=== PATIENT | male | born 1995 | race African-American/Black ===

== ENCOUNTER 2018-05-01 01:34 | Emergency (ER) | payer SELFPAY ==
[~2018-05-01] VITALS: Ht 172.7 cm; Wt 125.2 kg
[2018-05-01 03:40] VITALS: BP 148/98
== END 2018-05-01 04:11 | disposition home or self-care (01) ==
LOC: ER 01:34
DX: G24.3 Spasmodic torticollis (principal); M62.838 Other muscle spasm
CPT/HCPCS: 71045